=== PATIENT | female | born 1995 | race African-American/Black ===

== ENCOUNTER 2020-06-13 03:12 | Emergency (ER) | payer OTHER, BC ==
[~2020-06-13] VITALS: Ht 154.9 cm; Wt 115.0 kg
[~2020-06-13 03:12] MED LIST: ANTIVERT 25MG25 MG PO; MICARDIS20 MG PO; NORCO 325 MG-51 TAB PO; SAVELLA50 MG PO; SYMAX DUOTAB0.375 MG PO
[2020-06-13 03:16] VITALS: TEMP 98.3
[2020-06-13 03:27] LABS: HEMOGLOBIN 11.8 g/dl (12.5-16.0); MEAN CELL VOLUME 83 fl (80.0-100.0); MEAN CORPUSCULAR HEMOGLOBIN 27 pg (27.0-31.0); MEAN CORPUSCULAR HGB CONC 32 g/dl (33.0-37.0); MEAN PLATELET VOLUME 11.6 fl (7.4-10.4); PLATELET COUNT 258 K/mm3 (130-400); RED BLOOD COUNT 4.45 M/mm3 (4.10-5.30); REDCELL DISTRIBUTION WIDTH-CV 14.2 % (11.5-14.5)
[2020-06-13 03:28] LABS: HEMATOCRIT 36.8 % (37.0-47.0)
[2020-06-13 03:37] LABS: PROTHROMBIN TIME 10.7 SECONDS (9.7-12.8)
[2020-06-13 03:38] LABS: ALBUMIN 4.4 gm/dL (3.5-5.0); BILIRUBIN,TOTAL 0.2 mg/dL (0.0-1.0); CALCIUM 9.7 mg/dL (8.4-10.2); CREATININE, serum 0.69 (0.52-1.25); POTASSIUM 4.2 mmol/L (3.4-5.0); TOTAL PROTEIN 7.6 gm/dL (6.4-8.2)
[2020-06-13 03:40] LABS: EOSINOPHIL 2 % (0-4); HYPOCHROMIA 1+; LYMPHOCYTE 33 % (20.0-51.0); NEUTROPHILS 57 % (42.0-75.2); PARTIAL THROMBOPLASTIN TIME 26.8 SECONDS (26.0-37.0); PLATELET ESTIMATE NORMAL (NORMAL)
[2020-06-13 03:42] LABS: D-DIMER < 200.00 ng/mLDDu (200-230)
[2020-06-13 03:48] LABS: COLLECTION METHOD CLEAN CATCH
[2020-06-13 03:54] LABS: MUCOUS Present /lpf; PH 6 (5-8); SQUAMOUS EPITHELIAL 0-2 /hpf; URINE APPEARANCE Clear; URINE BACTERIA None Seen /hpf; URINE BILIRUBIN Negative (NEGATIVE); URINE BLOOD Negative (NEGATIVE); URINE COLOR Straw; URINE GLUCOSE Negative (NEGATIVE); URINE KETONE Negative (NEGATIVE); URINE LEUKOCYTE ESTERASE Negative (NEGATIVE); URINE NITRATE Negative (NEGATIVE); URINE PROTEIN(semi-quant) Negative (NEGATIVE); URINE RBC 0-2 /hpf; URINE UROBILINOGEN Negative (NEGATIVE); URINE WBC 0-2 /hpf
[2020-06-13 05:26] VITALS: BP 146/70; PULSE 91
== END 2020-06-13 05:31 | disposition home or self-care (01) ==
LOC: COL.ER 03:12
PROVIDERS: Emergency Medicine
DX: O26.891 Other specified pregnancy related conditions, first trimester (principal); R55 Syncope and collapse; Z3A.01 Less than 8 weeks gestation of pregnancy; Z86.39 Personal history of other endocrine, nutritional and metabolic disease; Z88.6 Allergy status to analgesic agent; Z88.8 Allergy status to other drugs, medicaments and biological substances
CPT/HCPCS: J7030

== ENCOUNTER 2020-07-17 02:22 | Emergency (ER) | payer BC ==
[~2020-07-17] VITALS: Ht 154.9 cm; Wt 115.9 kg
[2020-07-17 02:31] VITALS: TEMP 98.4
[2020-07-17 02:59] LABS: COLLECTION METHOD CLEAN CATCH
[2020-07-17 03:02] LABS: BASO # 0.1 (0.0-0.2); BASO % 0.6 % (0.0-2.0); EOS # 0.2 (0.0-0.7); EOS % 2.2 % (0-4.0); GRAN % 60.5 % (42.2-75.2); HEMATOCRIT 37.6 % (37.0-47.0); HEMOGLOBIN 12.4 g/dl (12.5-16.0); LYMPH # 2.8 (1.2-3.4); LYMPH % 28.1 % (20.0-51.0); MEAN CELL VOLUME 81 fl (80.0-100.0); MEAN CORPUSCULAR HEMOGLOBIN 27 pg (27.0-31.0); MEAN CORPUSCULAR HGB CONC 33 g/dl (33.0-37.0); MEAN PLATELET VOLUME 11.9 fl (7.4-10.4); MONO # 0.8 (0.1-0.6); PLATELET COUNT 222 K/mm3 (130-400); RED BLOOD COUNT 4.63 M/mm3 (4.10-5.30); REDCELL DISTRIBUTION WIDTH-CV 14.2 % (11.5-14.5)
[2020-07-17 03:04] LABS: MUCOUS Present /lpf; PH 5 (5-8); URINE APPEARANCE Hazy; URINE BACTERIA Rare /hpf; URINE BILIRUBIN Negative (NEGATIVE); URINE BLOOD Negative (NEGATIVE); URINE COLOR Yellow; URINE GLUCOSE Negative (NEGATIVE); URINE KETONE Negative (NEGATIVE); URINE LEUKOCYTE ESTERASE Negative (NEGATIVE); URINE NITRATE Negative (NEGATIVE); URINE PROTEIN(semi-quant) Negative (NEGATIVE); URINE RBC 0-2 /hpf; URINE UROBILINOGEN Negative (NEGATIVE)
[2020-07-17 03:07] LABS: ALBUMIN 4.2 gm/dL (3.5-5.0); BILIRUBIN,TOTAL 0.3 mg/dL (0.0-1.0); CALCIUM 9.8 mg/dL (8.4-10.2); CREATININE, serum 0.56 (0.52-1.25); POTASSIUM 4.2 mmol/L (3.4-5.0); TOTAL PROTEIN 7.5 gm/dL (6.4-8.2)
[2020-07-17 04:02] VITALS: BP 139/87; PULSE 87
== END 2020-07-17 04:02 | disposition home or self-care (01) ==
LOC: COL.ER 02:22
PROVIDERS: Emergency Medicine
DX: O26.892 Other specified pregnancy related conditions, second trimester (principal); R10.31 Right lower quadrant pain; O10.012 Pre-existing essential hypertension complicating pregnancy, second trimester; Z3A.13 13 weeks gestation of pregnancy; Z88.6 Allergy status to analgesic agent; Z88.8 Allergy status to other drugs, medicaments and biological substances